=== PATIENT | female | born 1990 | race African-American/Black ===

== ENCOUNTER 2022-12-28 03:59 | Emergency (ER) | payer SELFPAY ==
[~2022-12-28] VITALS: Ht 167.6 cm; Wt 60.0 kg
[2022-12-28] MEDS ORDERED: ONDANSETRON HCL 4MG/2ML INJ IV STA (05:47)
[2022-12-28] MEDS ORDERED: MORPHINE SULFATE 4 MG/ML CPJ (NOT FOR IM USE) IV STA (05:47)
[2022-12-28] MEDS ORDERED: SODIUM CHLORIDE 0.9% 1,000 ML IV ONE (06:00)
[2022-12-28 06:10] LABS: BASOPHILS % 0.2 % (0.0-2.0); EOSINOPHILS % 0.1 % (0.0-5.0); HEMATOCRIT. 36.6 % (36.0-48.0); HEMOGLOBIN. 12.3 g/dL (12.0-16.0); MEAN CORPUSCULAR VOLUME 91.8 fL (81.0-99.0); MEAN PLATELET VOLUME 8.2 fl (7.4-10.4); MONOCYTES % 6.3 % (2.0-8.0); NEUTROPHILS % 83.4 % (40.0-76.0); PLATELET 176 x1000/uL (130-400); RED BLOOD CELL COUNT 3.98 mill/uL (4.2-5.4); RED CELL DISTRIBUTION WIDTH 13.2 % (11.6-14.6)
[2022-12-28 06:18] LABS: CHLORIDE 106 mEq/L (98-107)
[2022-12-28 06:22] LABS: PROTHROMBIN TIME 10.7 sec (9.6-11.0)
[2022-12-28 06:27] LABS: HCG SCREEN NEGATIVE
[2022-12-28 07:48] LABS: CLARITY URINE CLEAR (CLEAR); COLOR URINE YELLOW (YELLOW); KETONES URINE NEGATIVE (NEGATIVE); LEUKOCYTE ESTERASE URINE TRACE (NEGATIVE); NITRITE URINE NEGATIVE (NEGATIVE); OCCULT BLOOD URINE NEGATIVE (NEGATIVE); PROTEIN URINE NEGATIVE (NEGATIVE); SPECIFIC GRAVITY URINE 1.009 (1.005-1.030); UROBILINOGEN URINE 0.2 E.U./dL (0.2-1.0)
[2022-12-28] MEDS ORDERED: KETOROLAC 30MG/ML VIAL IV ONE (09:00)
[2022-12-28] MEDS ORDERED: IBUP-2029 MT (09:23)
[2022-12-28] MEDS ORDERED: METH-773 MT (09:23)
[2022-12-28 09:53] VITALS: BP 126/67
== END 2022-12-28 09:54 | disposition home or self-care (01) ==
LOC: ER 03:59
DX: S09.8XXA Other specified injuries of head, initial encounter (principal); S29.8XXA Other specified injuries of thorax, initial encounter; S39.81XA Other specified injuries of abdomen, initial encounter; S99.812A Other specified injuries of left ankle, initial encounter; V43.62XA Car passenger injured in collision with other type car in traffic accident, initial encounter; Y93.89 Activity, other specified; Y92.488 Other paved roadways as the place of occurrence of the external cause; Y99.8 Other external cause status
CPT/HCPCS: 36415; 70450; 71045; 71260; 72125; 73610; 74177; 80053; 81003; 81025; 84703; 85025; 85610; 93005; 96361; 96374; 96375; 99291; J1885; J2270; J2405; J7030; Z7610